=== PATIENT | female | born 1970 | race Caucasian/White ===

== ENCOUNTER 2019-12-14 12:36 | Emergency (ER) | payer OTHER ==
[~2019-12-14] VITALS: Ht 154.9 cm; Wt 56.7 kg
[~2019-12-14 12:36] MED LIST: BENAZEPRIL HCL20 MG PO; LIPITOR20 MG PO; TYLENOL WITH C1 EACH PO
[2019-12-14 13:06] VITALS: BP 111/80
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
--- NOTE | 2019-12-14 13:21 | Diagnostic Imaging Report ---
Chest, 2 views, 12/14/2019. History: CT. Comparison: None available. Findings: The cardiomediastinal silhouette and pulmonary vasculature are within normal limits. There is biapical pleural thickening and minimal upper lobe scarring. The lungs are otherwise clear without evidence of consolidation or pleural effusion. Aortic contour is within normal limits. There are no acute osseous or soft tissue abnormalities. Impression: No acute cardiopulmonary abnormality. Signed by: Keshawn Solorio on 12/14/2019 1:18 PM
--- NOTE | 2019-12-14 13:22 | Diagnostic Imaging Report ---
Left shoulder, 3 views. History: Pain. Findings: The soft tissues are normal. Bone mineralization is normal. There is no evidence of fracture, AC separation, or dislocation. There are no lytic or sclerotic lesions. The joint spaces are within normal limits. IMPRESSION: Normal left shoulder. Signed by: Keshawn Solorio on 12/14/2019 1:19 PM
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
[2019-12-14] MEDS ORDERED: CYCLOBENZAPRINE5 MG PO (13:29)
[2019-12-14] MEDS ORDERED: NAPROSYN500 MG PO (13:29)
== END 2019-12-14 13:44 | disposition home or self-care (01) ==
LOC: FSED 12:57
DX: S13.4XXA Sprain of ligaments of cervical spine, initial encounter (principal); S40.012A Contusion of left shoulder, initial encounter; M25.562 Pain in left knee; M25.561 Pain in right knee; V43.52XA Car driver injured in collision with other type car in traffic accident, initial encounter; Y92.488 Other paved roadways as the place of occurrence of the external cause; I10 Essential (primary) hypertension; E78.5 Hyperlipidemia, unspecified
CPT/HCPCS: 71046; 72040; 99283